=== PATIENT | female | born 1980 | race Caucasian/White ===

== ENCOUNTER 2022-06-05 14:29 | Outpatient (CLI) | payer BC ==
--- NOTE | 2022-06-05 15:58 | Ultrasound Report ---
PROCEDURE: Retroperitoneal INDICATIONS: KIDNEY INJURY TECHNIQUE: Real-time scanning was performed of the retroperitoneal organs, with image documentation. COMPARISON: None. FINDINGS: Kidneys: Kidneys demonstrate mild increased echogenicity. Right kidney measures 11.5 cm long; left k idney measures 10.7 cm long. Right renal cortical thickness is 1.4 cm; left renal cortical thickness is 1.6 cm. No solid masses, hydronephrosis, or nephrolithiasis. Bladder: Pre-void bladder volume is 265 mL. Post-void residual is 3.8 mL. Pre-void images demonstr ate no intraluminal masses or stones. On pre-void images, only the left ureteral jet is noted with c olor Doppler interrogation. (Of note, ureteral jets may not be detectable in up to 25% of cases due to insufficient differences in specific gravity between ureteral and bladder urine). Miscellaneous: No free abdominal fluid. IMPRESSION: Mild echogenic kidneys, suggestive of medical renal disease. Reviewed by: Shahnaz Arias MD on 06/05/2022 3:57 PM PDT Approved by: Shahnaz Arias MD on 06/05/2022 3:57 PM PDT Station ID: [id number]
== END 2022-06-05 14:30 | disposition home or self-care (01) ==
LOC: DI 14:29
PROVIDERS: ATTEND Registered Nurse
DX: N17.9 Acute kidney failure, unspecified (principal)

== ENCOUNTER 2023-03-05 21:08 | Emergency (ER) | payer BC ==
--- NOTE | 2023-03-05 21:41 | ED Physician Documentation ---
PD HPI CHEST PAIN - Stated complaint Stated Complaint: HIGH BP,IBARRA,DIZZY - Chief complaint Chief Complaint: Cardiac - History obtained from History obtained from: Patient - Additional information Additional information: 42-year-old woman with longstanding type 1 diabetes on an insulin pump with CGM. Generally very well-controlled. Recently though has been worked up for anemia with no evidence of GI bleeding and it was felt that her anemia was due to iron deficiency due to poor absorption from gastroparesis. She has been on oral iron supplementation, but reportedly that is not improving her situation and is being scheduled with some hiccups for IV iron. This evening she is feeling more fatigued with rapid palpitations and chest pressure. PD PAST MEDICAL HISTORY - Past Medical History Past Medical History: Yes Cardiovascular: Hypertension Endocrine/Autoimmune: Type 2 diabetes, HyPOthyroidism HEENT: None Psych: Depression Musculoskeletal: None - Past Surgical History Past Surgical History: Yes General: Cholecystectomy Ortho: Rotator cuff repair, Carpal Tunnel surgery /[employer]: section, Tubal ligation - Present Medications Home Medications: Ambulatory Orders Medication Instructions Recorded Confirmed Levothyroxine Sodium [Synthroid] 50 mcg PO DAILY 05/21/13 03/05/23 Lisinopril [Zestril] 20 mg PO DAILY 05/21/13 03/05/23 Insulin Detemir [Levemir Flextouch] 40 units SQ BID 04/18/15 03/05/23 Insulin Lispro [Humalog] 15 units SQ TID 04/18/15 03/05/23 Atorvastatin [Lipitor] 10 mg PO QPM 03/05/23 03/05/23 Chlorthalidone 12.5 mg PO QPM 03/05/23 03/05/23 Dapagliflozin Propanediol [Farxiga] 10 mg PO DAILY 03/05/23 03/05/23 Ferrous Sulfate [Slow Fe] 45 mg PO QPM 03/05/23 03/05/23 Pregabalin [Lyrica] 50 mg PO DAILY 03/05/23 03/05/23 metFORMIN [Glucophage] 100 mg PO BID 03/05/23 03/05/23 - Allergies Allergies/Adverse Reactions: Allergies Allergy/AdvReac Type Severity Reaction Status Date / Time Penicillins Allergy Severe Unknown Verified 03/05/23 21:33 - Social History Does the pt smoke?: No Smoking Status: Never smoker Does the pt drink ETOH?: No Does the pt have substance abuse?: No - Immunizations Immunizations are current?: Yes - POLST Patient has POLST: No PD ED PE NORMAL - Vitals Vital signs reviewed: Yes - General General: Alert and oriented X 3, No acute distress - HEENT HEENT: PERRL, EOMI - Neck Neck: Supple, no meningeal sign, No bony TTP - Cardiac Cardiac: RRR, No murmur - Respiratory Respiratory: No respiratory distress, Clear bilaterally - Abdomen Abdomen: Non tender - Extremities Extremities: No edema, No calf tenderness / cord - Neuro Neuro: Alert and oriented X 3, Normal speech Results - Vitals Vitals: Vital Signs - 24 hr 03/05/23 03/05/23 03/05/23 21:26 21:33 21:56 Temperature 37.6 C 36.0 C L Heart Rate 109 H 94 Respiratory 18 22 Rate Blood Pressure 155/94 H 135/88 H Blood Pressure 155/94 H [Left] O2 Saturation 99 96 03/05/23 22:14 Temperature Heart Rate 93 Respiratory 22 Rate Blood Pressure 136/78 H Blood Pressure [Left] O2 Saturation 95 Oxygen O2 Source Room air - EKG (time done) 2134 EKG releavant findings:: EKG personally interpreted by author of this note. Relevant findings are: Rate: Rate (enter#) (90) Rhythm: NSR [place]: Normal Intervals: Normal RI QRS: Normal Ischemia: Normal ST segments - Labs Labs: Laboratory Tests 03/05/23 03/05/23 03/05/23 21:43 21:43 21:43 WBC 12.1 H RBC 4.50 Hgb 10.9 L Hct 35.9 L MCV 79.8 L MCH 24.2 L MCHC 30.4 L RDW 15.9 H Plt Count 516 H MPV 9.6 Neut # (Auto) 8.9 H Lymph # (Auto) 1.9 [place] # (Auto) 1.0 Eos # (Auto) 0.2 Baso # (Auto) 0.1 Absolute Nucleated RBC 0.00 Nucleated RBC % 0.0 Sodium 134 L Potassium 4.1 Chloride 104 Carbon Dioxide 22 Anion Gap 8.0 BUN 36 H Creatinine 1.3 Estimated GFR (MDRD) 44 L Glucose 128 H Calcium 9.3 Total Bilirubin 0.3 AST 9 L ALT 10 Alkaline Phosphatase 45 Troponin I High Sens 2.9 Total Protein 7.4 Albumin 4.2 Globulin 3.2 Albumin/Globulin Ratio 1.3 Lipase 40 PD Medical Decision Making - ED course ED course: 42-year-old woman longstanding type 1 diabetes and anemia presents with feeling like her anemia is worse with rapid palpitations and fatigue. There is some chest pressure with it. Workup in the emergency department demonstrates that she does have anemia but certainly not near the transfusion tract threshold. CMP notable for elevated BUN and creatinine. These were discussed with her and they are at her baseline compared to her recollection of her old labs. Troponin negative. Departure - Departure Disposition: Home, Self Care Clinical Impression: Palpitations, Anemia, Type I diabetes mellitus Condition: Good Record reviewed to determine appropriate education?: Yes Instructions: ED Chest Pain NonCardiac Comments: As discussed, your anemia is not a point where it would mandate blood transfusion, but still continue to work on the iron transfusion. Looks like your other numbers such as your kidney function are at your baseline. Call your doctor to arrange a follow-up appointment, make the next available appointment. In the interim, return anytime if worse or if new symptoms develop. Forms: PCP List
[2023-03-05 22:01] LABS: BASOPHILS # (AUTO) 0.1 10^3/uL (0.0-0.1); BASOPHILS % (AUTO) 0.8 %; EOSINOPHILS # (AUTO) 0.2 10^3/uL (0.0-0.7); EOSINOPHILS % (AUTO) 1.3 %; HCT - HEMATOCRIT 35.9 % (37.0-47.0); HGB - HEMOGLOBIN 10.9 g/dL (12.0-16.0); LYMPHOCYTES # (AUTO) 1.9 10^3/uL (1.5-3.5); MEAN CORPUSCULAR HEMOGLOBIN 24.2 pg (27.0-31.0); MEAN CORPUSCULAR HGB CONC 30.4 g/dL (32.0-36.0); MEAN CORPUSCULAR VOLUME 79.8 fL (81.0-99.0); MEAN PLATELET VOLUME 9.6 fL (7.9-10.8); NEUTROPHILS # (AUTO) 8.9 10^3/uL (1.5-6.6); NEUTROPHILS % (AUTO) 73.6 %; PLT - PLATELET COUNT 516 10^3/uL (130-450); RED CELL DISTRIBUTION WIDTH 15.9 % (12.0-15.0); WHITE BLOOD COUNT 12.1 x10^3/uL (4.8-10.8)
[2023-03-05 22:15] LABS: ALBUMIN 4.2 g/dL (3.2-5.5); ALBUMIN/GLOBULIN RATIO 1.3 (1.0-2.2); BILIRUBIN,TOTAL 0.3 mg/dL (0.2-1.0); CALCIUM 9.3 mg/dL (8.5-10.3); CREATININE 1.3 mg/dL (0.6-1.3); POTASSIUM 4.1 mmol/L (3.5-4.5); TOTAL PROTEIN 7.4 g/dL (6.4-8.9)
[2023-03-05 22:23] VITALS: O2SAT 95
[2023-03-05 22:59] VITALS: BP 135/69
== END 2023-03-05 22:53 | disposition home or self-care (01) ==
LOC: ED 21:08
DX: D64.9 Anemia, unspecified (principal); R00.2 Palpitations; E10.9 Type 1 diabetes mellitus without complications; Z79.4 Long term (current) use of insulin; Z96.41 Presence of insulin pump (external) (internal); Z79.84 Long term (current) use of oral hypoglycemic drugs
CPT/HCPCS: 36415; 80053; 83690; 84484; 85025; 86850; 86900; 86901; 93005; 99283; 99284

== ENCOUNTER 2023-03-17 07:43 | Outpatient (CLI) | payer BC | END 2023-03-17 07:44 | disposition home or self-care (01) | LOC: DI.N 07:43 | PROVIDERS: ATTEND Nurse Practitioner Family | DX: Z53.9 Procedure and treatment not carried out, unspecified reason (principal) ==

== ENCOUNTER 2023-03-24 07:17 | Outpatient (CLI) | payer BC ==
[2023-03-24 12:26] LABS: BASOPHILS # (AUTO) 0.1 10^3/uL (0.0-0.1); BASOPHILS % (AUTO) 0.7 %; EOSINOPHILS # (AUTO) 0.2 10^3/uL (0.0-0.7); EOSINOPHILS % (AUTO) 1.4 %; HCT - HEMATOCRIT 35.1 % (37.0-47.0); HGB - HEMOGLOBIN 10.5 g/dL (12.0-16.0); LYMPHOCYTES # (AUTO) 1.2 10^3/uL (1.5-3.5); LYMPHOCYTES % (AUTO) 10.9 %; MEAN CORPUSCULAR HEMOGLOBIN 25.4 pg (27.0-31.0); MEAN CORPUSCULAR HGB CONC 29.9 g/dL (32.0-36.0); MEAN PLATELET VOLUME 9.7 fL (7.9-10.8); MONOCYTES # (AUTO) 0.9 10^3/uL (0.0-1.0); NEUTROPHILS % (AUTO) 78.4 %; PLT - PLATELET COUNT 432 10^3/uL (130-450); RED BLOOD COUNT 4.13 10^6/uL (4.20-5.40); RED CELL DISTRIBUTION WIDTH 18.9 % (12.0-15.0); WHITE BLOOD COUNT 11.4 x10^3/uL (4.8-10.8)
[2023-03-24 13:20] LABS: FERRITIN 237.3 ng/mL (11.0-306.8)
== END 2023-03-24 07:18 | disposition home or self-care (01) ==
LOC: LAB.N 07:17
PROVIDERS: ATTEND Internal Medicine
DX: D50.9 Iron deficiency anemia, unspecified (principal)
CPT/HCPCS: 36415; 82728; 83540; 84466; 85025

== ENCOUNTER 2023-03-25 10:37 | Outpatient (CLI) | payer BC ==
--- NOTE | 2023-04-02 11:43 | Mammography Report ---
BILATERAL DIGITAL SCREENING MAMMOGRAM 3D/2D: 03/25/2023 CLINICAL: Family history of breast cancer. Routine screening. Comparison is made to exams dated: 05/27/2018 mammogram, 11/17/2017 mammogram, 05/03/2017 ultrasound, mammogram, 04/16/2017 mammogram, and 12/12/2015 ultrasound - [facility]. There are scattered areas of fibroglandular density in both breasts (category b / 25%-50% glandular t issue). No significant masses, calcifications, or other findings are seen in either breast. There has been no significant interval change. IMPRESSION: NEGATIVE There is no mammographic evidence of malignancy. A 1 year screening mammogram is recommended. Based on the Tyrer Cuzick model (a risk assessment model) the patient's lifetime risk is 15.8% and he r 10 year risk is 2.9%. According to the ACR, ACS, and NCCN guidelines, an annual breast MRI exam brian ng with mammogram is recommended if the patients lifetime risk is 20% or greater. This exam was interpreted at Station ID: [id number]. NOTE: For mammograms, a report in lay terms will be sent to the patient. Approximately 15% of breast malignancies will not be visualized mammographically. In the management of a palpable breast mass, a negative mammogram must not discourage biopsy of a clinically suspicious lesion. Electronically Signed By: Boubacar andersen/[email or web address]:04/01/2023 15:36:44 letter sent: No_Letter ACR BI-RADS Category 1: Negative 3341F PARENCHYMAL PATTERN: (A) - The breast(s) demonstrate(s) scattered fibroglandular densities. BI-RADS CATEGORY: (1) - 1 Mammogram [id number] 1 year screening LATERALITY: (B)
== END 2023-03-25 10:38 | disposition home or self-care (01) ==
LOC: DI.N 10:37
PROVIDERS: ATTEND Nurse Practitioner Family
DX: Z12.31 Encounter for screening mammogram for malignant neoplasm of breast (principal); R92.323 Mammographic fibroglandular density, bilateral breasts

== ENCOUNTER 2023-04-14 16:04 | Outpatient (CLI) | payer BC ==
[2023-04-14 18:36] LABS: FERRITIN 263.9 ng/mL (11.0-306.8)
== END 2023-04-14 16:05 | disposition home or self-care (01) ==
LOC: LAB.N 16:04
PROVIDERS: ATTEND Psychiatry & Neurology Behavioral Neurology & Neuropsychiatry
DX: D50.9 Iron deficiency anemia, unspecified (principal)
CPT/HCPCS: 36415; 82728; 83540; 84466

== ENCOUNTER 2023-04-15 12:02 | Outpatient (CLI) | payer BC ==
[2023-04-15 17:49] LABS: CALCIUM 9.7 mg/dL (8.5-10.3); CREATININE 1.1 mg/dL (0.6-1.3); POTASSIUM 4.2 mmol/L (3.5-4.5)
== END 2023-04-15 12:03 | disposition home or self-care (01) ==
LOC: LAB.N 12:02
PROVIDERS: ATTEND Internal Medicine Nephrology
DX: N18.32 Chronic kidney disease, stage 3b (principal)
CPT/HCPCS: 36415; 80069

== ENCOUNTER 2023-04-20 06:45 | Outpatient (CLI) | payer BC ==
--- NOTE | 2023-04-20 22:09 | Ultrasound Report ---
PROCEDURE: Pelvic w/Transvaginal INDICATIONS: MENORRHAGIA TECHNIQUE: Real-time scanning was performed of the pelvic organs, with image documentation. Additional endovagi nal scanning was necessary due to incomplete visualization of the adnexal and endometrial structures by transabdominal scanning. COMPARISON: None. FINDINGS: Uterus: Uterus is anteverted and enlarged in size at 10.0 x 5.6 x 6.0 cm. The myometrium is heterog eneous. The endometrium measures 6 mm in combined thickness. Mid anterior intramural focus of heter ogeneous echogenicity is present measuring 14 x 8 x 15 mm. Ovaries: The right ovary measures 3.9 x 2.1 x 2.5 cm, with a calculated ovarian volume of 10.7 cc. The left ovary measures 3.7 x 2.3 x 3.4 cm, with a calculated ovarian volume of 15.1 cc. There is mumtaz earance of right hydrosalpinx. Focus of heterogeneous echogenicity is present within the left ovary m easuring 18 x 19 x 18 mm. Other: No pathologic free abdominal or pelvic fluid. IMPRESSION: Right hydrosalpinx. Hemorrhagic left ovarian cyst. Reviewed by: Shahnaz Arias MD on 04/20/2023 10:08 PM PST Approved by: Shahnaz Arias MD on 04/20/2023 10:08 PM PST Station ID: [id number]
== END 2023-04-20 06:46 | disposition home or self-care (01) ==
LOC: DI 06:45
PROVIDERS: ATTEND Registered Nurse
DX: N92.0 Excessive and frequent menstruation with regular cycle (principal); N83.202 Unspecified ovarian cyst, left side; N70.11 Chronic salpingitis

== ENCOUNTER 2023-05-12 07:36 | Outpatient (CLI) | payer BC | END 2023-05-12 07:37 | disposition home or self-care (01) | LOC: LAB.N 07:36 | PROVIDERS: ATTEND Internal Medicine | DX: N93.9 Abnormal uterine and vaginal bleeding, unspecified (principal); D50.9 Iron deficiency anemia, unspecified; R78.89 Finding of other specified substances, not normally found in blood | CPT/HCPCS: 36415; 82728; 83540; 84466 ==

== ENCOUNTER 2023-07-08 07:28 | Outpatient (CLI) | payer BC | END 2023-07-08 07:29 | disposition home or self-care (01) | LOC: LAB 07:28 → LAB.N 07:29 | PROVIDERS: ATTEND Registered Nurse | DX: D50.9 Iron deficiency anemia, unspecified (principal) ==

== ENCOUNTER 2023-07-08 07:34 | Outpatient (CLI) | payer BC ==
[2023-07-08 12:39] LABS: BASOPHILS # (AUTO) 0.1 10^3/uL (0.0-0.1); BASOPHILS % (AUTO) 0.9 %; EOSINOPHILS # (AUTO) 0.6 10^3/uL (0.0-0.7); EOSINOPHILS % (AUTO) 5.9 %; HCT - HEMATOCRIT 41.3 % (37.0-47.0); HGB - HEMOGLOBIN 13.1 g/dL (12.0-16.0); LYMPHOCYTES # (AUTO) 1.4 10^3/uL (1.5-3.5); LYMPHOCYTES % (AUTO) 13.7 %; MEAN CORPUSCULAR HEMOGLOBIN 29.9 pg (27.0-31.0); MEAN CORPUSCULAR HGB CONC 31.7 g/dL (32.0-36.0); MEAN CORPUSCULAR VOLUME 94.3 fL (81.0-99.0); MEAN PLATELET VOLUME 10.5 fL (7.9-10.8); MONOCYTES # (AUTO) 0.7 10^3/uL (0.0-1.0); MONOCYTES % (AUTO) 7.3 %; NEUTROPHILS # (AUTO) 7.3 10^3/uL (1.5-6.6); NEUTROPHILS % (AUTO) 71.9 %; PLT - PLATELET COUNT 323 10^3/uL (130-450); RED BLOOD COUNT 4.38 10^6/uL (4.20-5.40); RED CELL DISTRIBUTION WIDTH 14.5 % (12.0-15.0); WHITE BLOOD COUNT 10.1 x10^3/uL (4.8-10.8)
[2023-07-08 12:51] LABS: ESTIMATED AVERAGE GLUCOSE 186 mg/dL (70-100); HEMOGLOBIN A1c% 8.1 % (4.27-6.07)
[2023-07-08 13:02] LABS: ALBUMIN/GLOBULIN RATIO 1.4 (1.0-2.2); BILIRUBIN,TOTAL 0.4 mg/dL (0.2-1.0); CALCIUM 9.6 mg/dL (8.5-10.3); CREATININE 1.4 mg/dL (0.6-1.3); POTASSIUM 4.3 mmol/L (3.5-4.5); THYROID STIMULATING HORMONE 0.1 uIU/mL (0.34-5.60); TOTAL PROTEIN 6.9 g/dL (6.4-8.9)
[2023-07-08 13:05] LABS: CREATININE,URINE 91.5 mg/dL; MICROALBUMIN,URINE 1.1 mg/dL
== END 2023-07-08 07:35 | disposition home or self-care (01) ==
LOC: LAB 07:34 → LAB.N 07:35
PROVIDERS: ATTEND Internal Medicine
DX: E10.9 Type 1 diabetes mellitus without complications (principal); D50.9 Iron deficiency anemia, unspecified; R78.89 Finding of other specified substances, not normally found in blood
CPT/HCPCS: 36415; 80053; 81599; 82043; 82570; 82728; 83036; 83540; 84439; 84443; 84466; 85025

== ENCOUNTER 2023-11-09 09:38 | Outpatient (CLI) | payer BC ==
[2023-11-09 12:27] LABS: BASOPHILS # (AUTO) 0.1 10^3/uL (0.0-0.1); BASOPHILS % (AUTO) 0.8 %; EOSINOPHILS # (AUTO) 0.2 10^3/uL (0.0-0.7); EOSINOPHILS % (AUTO) 1.6 %; HCT - HEMATOCRIT 43.4 % (37.0-47.0); HGB - HEMOGLOBIN 14.2 g/dL (12.0-16.0); LYMPHOCYTES # (AUTO) 1.4 10^3/uL (1.5-3.5); LYMPHOCYTES % (AUTO) 11.4 %; MEAN CORPUSCULAR HEMOGLOBIN 30.7 pg (27.0-31.0); MEAN CORPUSCULAR HGB CONC 32.7 g/dL (32.0-36.0); MEAN CORPUSCULAR VOLUME 93.7 fL (81.0-99.0); MEAN PLATELET VOLUME 10.3 fL (7.9-10.8); MONOCYTES # (AUTO) 0.7 10^3/uL (0.0-1.0); MONOCYTES % (AUTO) 6.3 %; NEUTROPHILS # (AUTO) 9.4 10^3/uL (1.5-6.6); NEUTROPHILS % (AUTO) 79.6 %; PLT - PLATELET COUNT 420 10^3/uL (130-450); RED BLOOD COUNT 4.63 10^6/uL (4.20-5.40); RED CELL DISTRIBUTION WIDTH 12.6 % (12.0-15.0); WHITE BLOOD COUNT 11.8 x10^3/uL (4.8-10.8)
[2023-11-09 12:57] LABS: % IRON SATURATION 31 % (20-50); ALBUMIN 4.2 g/dL (3.2-5.5); ALBUMIN/GLOBULIN RATIO 1.4 (1.0-2.2); ALKALINE PHOSPHATASE 47 IU/L (42-121); ALT ALANINE AMINOTRANSFERASE 12 IU/L (10-60); AST ASPARTATE AMINOTRANSFERASE 10 IU/L (10-42); BILIRUBIN,TOTAL 0.7 mg/dL (0.2-1.0); BUN - BLOOD UREA NITROGEN 26 mg/dL (6-20); CALCIUM 9.6 mg/dL (8.5-10.3); CARBON DIOXIDE - CO2 28 mmol/L (21-32); CHLORIDE 104 mmol/L (101-111); CHOL/HDL RATIO 2.5 (<4.4); CHOLESTEROL 147 mg/dL; CREATININE 1.4 mg/dL (0.6-1.3); GFR - MDRD 41 (>89); GLUCOSE 175 mg/dL (74-104); HDL CHOLESTEROL 60 mg/dL; IRON 93 ug/dL (50-212); LDL CHOLESTEROL,CALCULATED 65 mg/dL; LDL/HDL RATIO 1.1 (<4.4); POTASSIUM 4.6 mmol/L (3.5-4.5); SODIUM 139 mmol/L (135-145); TOTAL IRON BINDING CAPACITY 302 ug/dL (250-450); TOTAL PROTEIN 7.2 g/dL (6.4-8.9); TRANSFERRIN 216 mg/dL (203-362); TRIGLYCERIDES 109 mg/dL; VLDL CHOLESTEROL 22 mg/dL
[2023-11-09 12:59] LABS: THYROID STIMULATING HORMONE 0.82 uIU/mL (0.34-5.60)
[2023-11-09 13:05] LABS: FERRITIN 191.7 ng/mL (11.0-306.8)
[2023-11-09 13:06] LABS: ESTIMATED AVERAGE GLUCOSE 171 mg/dL (70-100); HEMOGLOBIN A1c% 7.6 % (4.27-6.07)
== END 2023-11-09 09:39 | disposition home or self-care (01) ==
LOC: LAB.N 09:38
PROVIDERS: ATTEND Internal Medicine
DX: D50.9 Iron deficiency anemia, unspecified (principal); E10.29 Type 1 diabetes mellitus with other diabetic kidney complication; N28.9 Disorder of kidney and ureter, unspecified; E78.5 Hyperlipidemia, unspecified; R78.89 Finding of other specified substances, not normally found in blood
CPT/HCPCS: 36415; 80053; 80061; 82728; 83036; 83540; 83721; 84439; 84443; 84466; 84481; 85025

== ENCOUNTER 2023-11-15 06:16 | Day surgery (SDC) | payer BC ==
[2023-11-15] MEDS: LACTATED RINGERS 1,000 ML IV ONE (06:22)
--- NOTE | 2023-11-15 07:26 | ANESTHESIA ---
Pre-Anesthesia VS, & Labs - Diagnosis screening - Procedure colonoscopy Vital Signs: Temp Pulse Resp BP Pulse Ox O2 Flow Rate 35.7 C L 54 L 16 134/74 H 97 11/15/23 06:22 11/15/23 06:22 11/15/23 06:22 11/15/23 06:22 11/15/23 06:22 Height: 5 ft 9 in Weight (kg): 109 kg Body Mass Index: 35.4 BMI Classification: Obese - NPO Other (prep as directed) - Is Patient ?: No - Lab Results Current Lab Results: Laboratory Tests 11/15/23 06:54: POC Whole Bld Glucose 155 H Home Medications and Allergies Home Medications: Ambulatory Orders Cholecalciferol [Vitamin D3] 25 mcg PO DAILY 11/09/23 Desvenlafaxine Succinate [Pristiq ER] 50 mg PO DAILY 11/09/23 Dextroamphetamine/Amphetamine [Adderall Xr 25 mg Capsule] 25 mg PO DAILY 11/09/23 Insulin Aspart [Novolog] 60 - 70 unit SQ DAILY 11/09/23 OXcarbazepine [Trileptal] 150 mg PO BID 11/09/23 Zolpidem Tartrate [Ambien Cr] 12.5 mg PO QPM 11/09/23 Levothyroxine Sodium [Synthroid] 125 mcg PO DAILY 05/21/13 Lisinopril [Zestril] 20 mg PO DAILY 05/21/13 Atorvastatin [Lipitor] 40 mg PO QPM 03/05/23 Ferrous Sulfate [Slow Fe] 45 mg PO QPM 03/05/23 Pregabalin [Lyrica] 50 mg PO QDBREAKFAST 03/05/23 metFORMIN [Glucophage] 1,000 mg PO BID 03/05/23 Cyanocobalamin (Vitamin B-12) [Vitamin B-12 (500 mcg sublingual)] 500 mcg SL DAILY 04/30/23 Pregabalin [Lyrica] 150 mg PO QPM 04/30/23 carvediloL [Coreg] 12.5 mg PO BID 04/30/23 Cholecalciferol [Vitamin D3] 25 mcg PO DAILY 11/09/23 Desvenlafaxine Succinate [Pristiq ER] 50 mg PO DAILY 11/09/23 Dextroamphetamine/Amphetamine [Adderall Xr 25 mg Capsule] 25 mg PO DAILY 11/09/23 Insulin Aspart [Novolog] 60 - 70 unit SQ DAILY 11/09/23 OXcarbazepine [Trileptal] 150 mg PO BID 11/09/23 Zolpidem Tartrate [Ambien Cr] 12.5 mg PO QPM 11/09/23 Allergies/Adverse Reactions: Allergies Allergy/AdvReac Type Severity Reaction Status Date / Time Penicillins Allergy Severe Rash Verified 11/09/23 16:24 latex Allergy Rash Verified 11/09/23 16:24 Anes History & Medical History - Anesthetic History Anesthesia Complications: reports: No previous complications - Medical History Cardiovascular: reports: Hypertension Pulmonary: reports: None Gastrointestinal: reports: Chronic diarrhea, Other Urinary: reports: Other Musculoskeletal: reports: Chronic back pain Endocrine/Autoimmune: reports: Type 1 diabetes, HyPOthyroidism Blood Disorders: reports: None Skin: reports: None Smoking Status: Never smoker - Surgical History General: reports: Cholecystectomy Gynecologic: reports: section, Tubal ligation Orthopedic: reports: Rotator cuff repair, Carpal Tunnel surgery, Spine surgery Exam General: Alert, Oriented x3 Dental: WNL Mouth Opening: Greater than 4 Fingerbreadths Neck Mobility: Normal Mallampati classification: II Thyromental Distance: greater than 6 cm Respiratory: Lungs clear Cardiovascular: Regular rate Plan Anesthesia Type: Total IV Consent for Procedure(s) Verified and Reviewed: Yes Code Status: Attempt Resuscitation ASA classification: 3-Severe systemic disease Is this case an emergency?: No
[2023-11-15] MEDS ORDERED: PROPOFOL 500 MG/50 ML 500 MG/50 ML VIAL ONE (08:04)
[2023-11-15] MEDS ORDERED: LIDOCAINE-MPF 2% 5 ML VIAL ONE (08:04)
[2023-11-15] MEDS: LACTATED RINGERS 750 ML IV ONE (08:13)
[2023-11-15 08:23] VITALS: O2SAT 98
[2023-11-15 08:36] VITALS: BP 153/98
--- NOTE | 2023-11-15 15:01 | ANESTHESIA POST OP EVALUATION ---
Anesthesia Post Eval - Post Anesthesia Eval Vitals: Last Vital Signs Temp 36. C L 11/15/23 08:30 Pulse 54 L 11/15/23 08:30 Resp 20 11/15/23 08:30 BP 153/98 H 11/15/23 08:30 Pulse Ox 98 11/15/23 08:30 O2 Flow Rate CV Function Including HR & BP: Stable Pain Control: Satisfactory Nausea & Vomiting: Negative Mental Status: Baseline Respiratory Status: Airway Patent Hydration Status: Satisfactory Anesthesia Complications: None
== END 2023-11-15 06:17 | disposition home or self-care (01) ==
LOC: SDS 06:16
PROVIDERS: ATTEND Surgery
DX: Z12.11 Encounter for screening for malignant neoplasm of colon (principal); K64.1 Second degree hemorrhoids; E66.9 Obesity, unspecified; E10.22 Type 1 diabetes mellitus with diabetic chronic kidney disease; E10.65 Type 1 diabetes mellitus with hyperglycemia; N18.31 Chronic kidney disease, stage 3a; Z79.84 Long term (current) use of oral hypoglycemic drugs; Z79.4 Long term (current) use of insulin; Z68.35 Body mass index [BMI] 35.0-35.9, adult
CPT/HCPCS: 45378; J7120